=== PATIENT | male | born 1970 | race Caucasian/White ===

== ENCOUNTER 2018-05-15 15:47 | Emergency (ER) | payer MEDICAID ==
--- NOTE | 2018-05-15 15:57 | EDPHY ---
H & P Time Seen by Provider: 05/15/18 15:57 HPI/ROS: CHIEF COMPLAINT: Right hand injury HISTORY OF PRESENT ILLNESS: This is a 48-year-old svpli-dcuk-[id number] male presents with right hand injury. He was walking his friend's pit bull yesterday afternoon when the dog pulled him down. He landed with his right hand clenched in a fist, creating impact on his knuckles. He has tried ice and heat and elevation since the injury. He had some edible marijuana prior to sleeping last night. He has not taken any other medications aside from mirlande. He does not use any smsu-qwx-gldlfab or prescription medications, preferring to use "natural medications". He has pain and swelling over the MCP of the long digit on the right and swelling over the corresponding metacarpal. No numbness. He denies other injuries. REVIEW OF SYSTEMS: A ten system review of systems was performed and is negative with the exception of the items mentioned in the HPI. Past medical history: Orthopedic problems Past surgical history: 1. Ear tubes 2. 2 left knee surgeries 3. Right meniscus repair 4. Left shoulder surgery 5. Right shoulder surgery x3 Social history: He is currently living with his mother, who is in poor health. Prior to that he was living in [place], his girlfriend remains in [place]. He uses chewing tobacco. General Appearance: Alert. Vital signs reviewed. A focused exam was performed. Blood pressure 134/69. Respiratory: Lungs are clear to auscultation; no wheezes, rales, or rhonchi. Cardiovascular: Regular rate and rhythm; no murmur, rub, or gallop. Skin: Warm and dry, no rashes on exposed skin, normal color. Extremities: Swelling and bruising over the right 3rd metacarpal and MCP. He is able to flex and extend his digits, but doing so causes pain. No rotational deformity. Pulses: 2+ radial pulse on the right. Brisk capillary refill all 5 digits of the right. Neurological: Alert and oriented. Moving all four extremities easily and equally. Psychiatric: Normal affect. - Personal History Tetanus Vaccine Date: 2013 - Medical/Surgical History Hx Asthma: No Hx Chronic Respiratory Disease: No Hx Diabetes: No Hx Cardiac Disease: No Hx Renal Disease: No Hx Cirrhosis: No Hx Alcoholism: No Hx HIV/AIDS: No Hx Splenectomy or Spleen Trauma: No Other PMH: TIA, Dry chronic rash - Social History Smoking Status: Former smoker Constitutional: Initial Vital Signs Temperature (C) 37.2 C 05/15/18 15:54 Heart Rate 87 05/15/18 15:54 Respiratory Rate 18 05/15/18 15:54 Blood Pressure 134/69 H 05/15/18 15:54 O2 Sat (%) 92 05/15/18 15:54 O2 Delivery Mode Room Air Allergies/Adverse Reactions: Penicillins Allergy (Verified 05/15/18 15:58) Sulfa (Sulfonamide Antibiotics) Allergy (Verified 05/15/18 15:58) Home Medications: Medication Instructions Recorded NK [No Known Home Meds] 01/15/18 Medical Decision Making ED Course/Re-evaluation: Patient with hand injury that occurred 24 hr ago. I reviewed his right hand x- ray. There is no fracture or dislocation. Discussed ice and elevation. He does not want to take any eiwg-wul-qrqyjrt pain medication. Differential Diagnosis: Considered a differential diagnosis that includes but is not limited to fracture , dislocation, contusion, abrasion, and laceration. Departure - Departure Disposition: Home, Routine, Self-Care Clinical Impression: Contusion Qualifiers: Encounter type: initial encounter Contusion area: hand Laterality: right Qualified Code(s): S60.221A - Contusion of right hand, initial encounter Condition: Good Instructions: Contusion in Adults (ED), R.I.C.E. Treatment (ED) Referrals: [facility],. [Clinic] - As per Instructions
[2018-05-15 15:58] VITALS: BP 134/69
== END 2018-05-15 16:43 | disposition home or self-care (01) ==
LOC: CED 15:47
DX: S60.221A Contusion of right hand, initial encounter (principal); W54.8XXA Other contact with dog, initial encounter; Y92.480 Sidewalk as the place of occurrence of the external cause; Y93.K1 Activity, walking an animal
CPT/HCPCS: 73130-PO; 99283-ER